=== PATIENT | male | born 1975 | race Caucasian/White ===

== ENCOUNTER 2016-12-05 06:45 | Emergency (ER) | payer OTHER ==
[~2016-12-05] VITALS: Wt 67.0 kg
[2016-12-05] MEDS ORDERED: ONDANSETRON (ODT) 4 MG TAB ODT STA (07:13)
[2016-12-05] MEDS ORDERED: ACETAMINOPHEN 500 MG TAB PO STA (07:13)
[2016-12-05] MEDS ORDERED: PEN500 PO (07:14)
[2016-12-05] MEDS ORDERED: TYL500 PO (07:15)
--- NOTE | 2016-12-05 07:22 | ERD ---
ER Documentation Chief Complaint Date/Time DATE: 12/05/16 TIME: 07:19 Chief Complaint sore throat trouble swallowing and body pain for the past few days HPI This is a 41-year-old male presents to the ER with a sore throat, body aches, nausea, nonbilious nonbloody vomiting that started last night. Patient states that sore throat is worse whenever he swallows. Patient denies any shortness of breath or difficulty in breathing. He denies any chest pain. Patient denies any fever or chills. He does not have a cough he denies any rashes. There are no sick contacts at home. ROS 12 point review of systems was done, all negative except per HPI. Medications Home Meds Active Scripts Acetaminophen* (Tylenol*) 500 Mg Tab, 500 MG PO Q4H Y for MILD PAIN LEVEL 1-3 for 3 Days, TAB Prov:KAITLYNN SY 12/05/16 Penicillin V Potassium* (Penicillin V K*) 500 Mg Tab, 500 MG PO TID for 10 Days , TAB Prov:KERRIELOREKAITLYNN C 12/05/16 Reported Medications [None] No Conflict Check 07/25/09 Allergies Allergies: Coded Allergies: No Known Allergies (Verified Allergy, Mild, 12/05/16) PMhx/Soc Medical and Surgical Hx: pt denies Medical Hx, pt denies Surgical Hx History of Surgery: No Anesthesia Reaction: No Hx Neurological Disorder: No Hx Respiratory Disorders: No Hx Cardiac Disorders: No Hx Psychiatric Problems: No Hx Miscellaneous Medical Probl: No Hx Alcohol Use: No Hx Substance Use: No Hx Tobacco Use: Yes Smoking Status: Current every day smoker Physical Exam Vitals Vital Signs Date Time Temp Pulse Resp B/P Pulse Ox O2 Delivery O2 Flow Rate FiO2 12/05/16 06:58 97.5 70 20 125/86 98 Physical Exam GENERAL: The patient is well-developed, well-nourished, in no acute distress. HEENT: Atraumatic. Pupils equal, round and reactive to light. Extraocular muscles are grossly intact. Conjunctivae pink, no discharge. Bilateral tympanic membranes are clear with no evidence of erythema, effusion or dulling of the light reflex. Bilateral tonsillar erythema with exudates. No uvular deviation no kissing tonsils. RESPIRATORY: Clear to auscultation bilaterally. There are no rales, wheezes or rhonchi. No stridor HEART: Regular rate and rhythm. No murmurs, clicks, rubs or gallops. NEUROLOGIC: Alert and oriented. SKIN: There is no rash. The skin is warm and dry. Results 24 hrs Current Medications Medications (Trade) Dose Ordered Sig/Rick Route PRN Reason Start Time Stop Time Status Last Admin Dose Admin Acetaminophen (Tylenol Tab) 1,000 mg ONCE STAT PO 12/05/16 07:13 12/05/16 07:14 DC 12/05/16 07:18 Ondansetron HCl (Zofran Odt) 4 mg ONCE STAT ODT 12/05/16 07:13 12/05/16 07:14 DC 12/05/16 07:18 Procedures/MDM This is a 41-year-old male presents to the ER with sore throat, body aches, nausea, vomiting. Patient did have exudates bilaterally on both tonsils, this is likely strep throat. Suspicion for retropharyngeal or peritonsillar abscess is low, patient does not have any uvular deviation, kissing tonsils, muffled voice or drooling. Patient has not had any vomiting since last night, he does not appear dehydrated. He is afebrile and well-appearing. He will be sent home with penicillin. Patient is to follow-up with his primary care doctor within 1-2 days or return to ER sooner if symptoms worsen. My medical decision making was shared with the patient he understands and agrees with plan. Departure Diagnosis: Primary Impression: Strep throat Condition: Stable Patient Instructions: Pharyngitis, Strep (Presumed) Additional Instructions: Call your primary care doctor TOMORROW for an appointment during the next 1-2 days.See the doctor sooner or return here if your condition worsens before your appointment time. KAITLYNN SY December 05, 2016 07:22
== END 2016-12-05 07:30 | disposition home or self-care (01) ==
LOC: FTE 06:45
DX: J02.9 Acute pharyngitis, unspecified (principal); R11.10 Vomiting, unspecified; F17.210 Nicotine dependence, cigarettes, uncomplicated
CPT/HCPCS: Z7502; Z7610; 99283